=== PATIENT | male | born 1990 | race Caucasian/White ===

== ENCOUNTER 2018-12-07 09:55 | Emergency (ER) | payer SELFPAY ==
[2018-12-07] MEDS ORDERED: Sodium Chloride 0.9% 1,000 ML IV ONE (10:23)
--- NOTE | 2018-12-07 10:56 | EDM.PDOC ---
ED HPI GENERAL MEDICAL PROBLEM - General Chief Complaint: General Stated Complaint: FLU Time Seen by Provider: 12/07/18 10:12 Source of Information: Reports: Patient History Limitations: Reports: No Limitations - History of Present Illness INITIAL COMMENTS - FREE TEXT/NARRATIVE: Presents reporting a 3-4 day history of vomiting, diarrhea, cough and cold symptoms, feverish up to 102. He states that he has vomited 3 times and had diarrhea 4-5 times over the last couple of days. Denies sore throat, shortness of breath, chest pain, abdominal pain. Smokes one half pack per day. Did not have a flu shot. 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 - Related Data Allergies Allergy/AdvReac Type Severity Reaction Status Date / Time No Known Allergies Allergy Verified 12/07/18 10:07 Home Meds: Home Meds . 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 - Infectious Disease History Infectious Disease History: Reports: Chicken Pox Social & Family History - Family History Family Medical History: Noncontributory - Tobacco Use Smoking Status *Q: Current Every Day Smoker Years of Tobacco use: 8 Packs/Tins Daily: 0.5 - Recreational Drug Use Recreational Drug Use: No ED ROS GENERAL - Review of Systems Review Of Systems: ROS reveals no pertinent complaints other than HPI. ED EXAM, GENERAL - Physical Exam Exam: See Below Exam Limited By: No Limitations General Appearance: Alert, No Apparent Distress Ears: Normal External Exam, Normal TMs Nose: Normal Inspection Throat/Mouth: Normal Inspection, Other (Mild pharyngeal erythema) Head: Atraumatic, Normocephalic Neck: Normal Inspection Respiratory/Chest: No Respiratory Distress, Lungs Clear, Normal Breath Sounds Cardiovascular: Normal Peripheral Pulses, Regular Rate, Rhythm, No Murmur Back Exam: Normal Inspection Extremities: Normal Inspection Neurological: Alert, Oriented Psychiatric: Normal Affect, Normal Mood Skin Exam: Warm, Dry, Intact, Normal Color, No Rash Lymphatic: No Adenopathy Course - Vital Signs Last Recorded V/S: Last Vital Signs Temp 35.9 C 12/07/18 10:05 Pulse 80 12/07/18 10:05 Resp 18 12/07/18 10:05 BP 141/93 H 12/07/18 10:05 Pulse Ox 98 12/07/18 10:05 - Orders/Labs/Meds Labs: Laboratory Tests 12/07/18 12/07/18 Range/Units 10:44 10:44 WBC 8.72 (4.0-11.0) K/uL RBC 5.75 (4.50-5.90) M/uL Hgb 16.6 (13.0-17.0) g/dL Hct 48.8 (38.0-50.0) % MCV 84.9 (80.0-98.0) fL MCH 28.9 (27.0-32.0) pg MCHC 34.0 (31.0-37.0) g/dL RDW Std Deviation 39.9 (28.0-62.0) fl RDW Coeff of Danika 13 (11.0-15.0) % Plt Count 207 (150-400) K/uL MPV 10.10 (7.40-12.00) fL Neut % (Auto) 58.9 (48.0-80.0) % Lymph % (Auto) 28.7 (16.0-40.0) % Mckinley % (Auto) 10.3 (0.0-15.0) % Eos % (Auto) 1.5 (0.0-7.0) % Baso % (Auto) 0.6 (0.0-1.5) % Neut # (Auto) 5.1 (1.4-5.7) K/uL Lymph # (Auto) 2.5 H (0.6-2.4) K/uL Mckinley # (Auto) 0.9 H (0.0-0.8) K/uL Eos # (Auto) 0.1 (0.0-0.7) K/uL Baso # (Auto) 0.1 (0.0-0.1) K/uL Nucleated RBC % 0.0 /100WBC Nucleated RBCs # 0 K/uL Sodium 142 (136-148) mmol/L Potassium 3.8 (3.5-5.1) mmol/L Chloride 104 (98-107) mmol/L Carbon Dioxide 24.2 (21.0-32.0) mmol/L BUN 16 (7.0-18.0) mg/dL Creatinine 1.1 (0.8-1.3) mg/dL Est Cr Clr Drug Dosing 110.97 mL/min Estimated GFR (MDRD) > 60.0 ml/min Glucose 114 H (74-106) mg/dL Calcium 9.0 (8.5-10.1) mg/dL Total Bilirubin 0.5 (0.2-1.0) mg/dL AST 29 (15-37) IU/L ALT 58 (14-63) IU/L Alkaline Phosphatase 70 (46-116) U/L Total Protein 7.4 (6.4-8.2) g/dL Albumin 3.9 (3.4-5.0) g/dL Globulin 3.5 (2.6-4.0) g/dL Albumin/Globulin Ratio 1.1 (0.9-1.6) Meds: Medications Discontinued Medications Generic Name Dose Route Start Last Admin Trade Name Freq PRN Reason Stop Dose Admin Sodium Chloride 1,000 mls @ 999 mls/hr 12/07/18 10:23 12/07/18 10:45 Normal Saline IV 12/07/18 11:23 999 mls/hr STAT ONE Administration Ondansetron HCl 4 mg 12/07/18 11:35 12/07/18 11:47 Zofran IVPUSH 12/07/18 11:36 4 mg ONETIME ONE Administration - Re-Assessments/Exams Free Text/Narrative Re-Assessment/Exam: 12/07/18 12:29 enesis x1 in ER. Resolved with Zofran Departure - Departure Time of Disposition: 12:29 Disposition: Home, Self-Care 01 Condition: Good Clinical Impression: Gastroenteritis - Discharge Information Referrals: PCP,None [Primary Care Provider] - [facility] [Outside] [facility] [Outside] Forms: ED Department Discharge Additional Instructions: 1. Drink plenty of clear fluids 2. BRAT diet --and is rice applesauce and toast today, advance as tolerated 3. No work today, May return in the a.m. 4. Follow-up in primary care for evaluation of chronic medical problems
[2018-12-07] MEDS ORDERED: Ondansetron 4 MG/2 ML SDV IVPUSH ONE (11:35)
[2018-12-07 12:22] LABS: CHLORIDE,CL 104 mmol/L (98-107); SODIUM,NA 142 mmol/L (136-148)
== END 2018-12-07 12:58 | disposition home or self-care (01) ==
LOC: MW.ED 09:55
DX: K52.9 Noninfective gastroenteritis and colitis, unspecified (principal); F17.210 Nicotine dependence, cigarettes, uncomplicated
CPT/HCPCS: 36415; 80053; 85025; 96361; 96374; 99284; J2405; J7040; 99283